=== PATIENT | female | born 1955 | race Caucasian/White ===

== ENCOUNTER 2019-03-29 23:02 | Inpatient (IN) | payer OTHER ==
[2019-03-30 02:47] LABS: ADD MAN DIFF? NO
[2019-03-30 02:48] LABS: BASOPHIL # 0.1 10^3/ul (0.0-0.1); BASOPHILS % 0.5 % (0.0-2.0); EOSINOPHILS # 0.6 10^3/ul (0.0-0.5); EOSINOPHILS % 5.2 % (0.0-7.0); HEMATOCRIT 49.4 % (37.0-47.0); HEMOGLOBIN 15.5 g/dl (12.0-16.0); LYMPHOCYTES # 2.6 10^3/ul (0.8-2.9); LYMPHOCYTES % 24.2 % (15.0-51.0); MEAN CORPUSCULAR HEMOGLOBIN 28.1 pg (29.0-33.0); MEAN CORPUSCULAR HGB CONC 31.4 g/dl (32.0-37.0); MEAN CORPUSCULAR VOLUME 89.5 fl (82.0-101.0); MEAN PLATELET VOLUME 10.9 fl (7.4-10.4); MONOCYTE # 0.8 10^3/ul (0.3-0.9); MONOCYTES % 7.2 % (0.0-11.0); NEUTROPHIL # 6.8 10^3/ul (1.6-7.5); NEUTROPHILS % 62.5 % (39.0-77.0); PLATELET COUNT 214 10^3/UL (140-415); RED BLOOD COUNT 5.52 10^6/ul (4.20-5.40); RED CELL DISTRIBUTION WIDTH 13.6 % (11.5-14.5)
[2019-03-30 02:48] LABS: WHITE BLOOD COUNT 10.9 10^3/ul (4.8-10.8)
[2019-03-30] MEDS: SOD CHLORIDE 0.9% 1,000 ML IV (02:51)
[2019-03-30 02:52] LABS: ADD UMIC NO; UR ASCORBIC ACID NEGATIVE (NEGATIVE); UR BILIRUBIN (Dip) NEGATIVE (NEGATIVE); UR BLOOD (Dip) NEGATIVE (NEGATIVE); UR CLARITY CLEAR (CLEAR); UR COLOR STRAW (YELLOW); UR GLUCOSE (Dip) 3+ mg/dL (NEGATIVE); UR KETONES (Dip) NEGATIVE (NEGATIVE); UR LEUKOCYTE ESTERASE (Dip) NEGATIVE Leu/ul (NEGATIVE); UR NITRITE (Dip) NEGATIVE (NEGATIVE); UR TOTAL PROTEIN (Dip) NEGATIVE (NEGATIVE); UR UROBILINOGEN (Dip) NEGATIVE (NEGATIVE)
[2019-03-30 03:05] LABS: ALANINE AMINOTRANSFERASE 24 IU/L (13-69); ALBUMIN 4.6 g/dl (3.3-4.9); ALBUMIN/GLOBULIN RATIO 1.21; ALKALINE PHOSPHATASE 113 IU/L (42-121); ANION GAP 11 (5-13); ASPARTATE AMINO TRANSFERASE 21 IU/L (15-46); BILIRUBIN,INDIRECT 0.4 mg/dl (0-1.1); BILIRUBIN,TOTAL 0.4 mg/dl (0.2-1.3); BLOOD UREA NITROGEN 18 mg/dl (7-20); CALCIUM 9.3 mg/dl (8.4-10.2); CARBON DIOXIDE 31 mmol/L (21-31); CHLORIDE 101 mmol/L (97-110); Estimated GFR > 60 mL/min (>60); GLUCOSE 141 mg/dl (70-220); LIPASE 356 U/L (23-300); POTASSIUM 3.4 mmol/L (3.5-5.1); SODIUM 143 mmol/L (135-144); TOTAL PROTEIN 8.4 g/dl (6.1-8.1)
[2019-03-30 03:06] LABS: CREATININE 0.67 mg/dl (0.44-1.00)
[2019-03-30] MEDS ORDERED: ONDANSETRON 4 MG INJ IV (03:30)
[2019-03-30] MEDS ORDERED: DOCUSATE SODIUM 100 MG CAP PO (03:30)
[2019-03-30] MEDS ORDERED: BISACODYL (EC) 5 MG TAB PO (03:30)
[2019-03-30] MEDS ORDERED: NACL 0.9% 3 ML SYG IV (03:30)
[2019-03-30] MEDS ORDERED: morphine 2 MG INJ IV (03:30)
[2019-03-30] MEDS ORDERED: HYDROCODONE/APAP (5/325) TAB PO (03:30)
[2019-03-30] MEDS: morphine 4 MG/ML VIAL IV (03:38)
[2019-03-30] MEDS: ONDANSETRON 4 MG INJ IV (03:38)
[2019-03-30] MEDS: PIPER-TAZO 3.375 GM IV (PMX) 100 ML IVPB (03:39)
[2019-03-30] MEDS: POTASSIUM CHLORIDE (SR) 20 MEQ TAB PO (03:54)
[2019-03-30 06:00] LABS: HEMOGLOBIN A1C 7.3 % (0-5.9)
[2019-03-30 06:05] LABS: MAGNESIUM 2.1 mg/dl (1.7-2.5)
[2019-03-30 06:05] LABS: CHOL/HDL RATIO 2.7 RATIO; CHOLESTEROL 112 mg/dl (100-200); HDL CHOLESTEROL 41 mg/dl (35-98); LDL CHOLESTEROL,CALCULATED 53 mg/dl; TRIGLYCERIDES 88 mg/dl (0-149)
[2019-03-30] MEDS ORDERED: VANCOMYCIN IV PER PHARMACY XX (06:30)
[2019-03-30 06:38] LABS: C-REACTIVE PROTEIN 1.7 mg/dl (0.0-0.9)
[2019-03-30 07:43] LABS: ERYTHROCYTE SEDIMENTATION RATE 12 mm/Hr (0-30)
[2019-03-30] MEDS: INSULIN ASPART [NOVOLOG] 3 ML PEN SC ×2 (08:00→12:00)
[2019-03-30] MEDS: VANCOMYCIN HCL 2 GM in SOD CHLORIDE 0.9% 500 ML IVPB (10:13)
[2019-03-30] MEDS: ENOXAPARIN 40 MG/0.4 ML SYG SC (10:14)
[2019-03-30] MEDS ORDERED: GLUCAGON 1 MG INJ IM (13:30)
[2019-03-30] MEDS ORDERED: GLUCOSE GEL 15 GRAM TUBE PO ×2 (13:30)
[2019-03-30] MEDS ORDERED: GLUCOSE GEL 15 GRAM TUBE BUCCAL (13:30)
[2019-03-30] MEDS ORDERED: DEXTROSE 50% 50 ML SYRINGE IV ×2 (13:30)
[2019-03-30] MEDS: ACETAMINOPHEN 325 MG TAB PO (15:01)
[2019-03-30] MEDS ORDERED: VANCOMYCIN HCL 1.5 GM in SOD CHLORIDE 0.9% 250 ML IVPB (22:00)
[2019-03-31] MEDS ORDERED: ACCU-CHEK XX (02:00)
== END 2019-03-30 17:40 | disposition home or self-care (01) | DRG 603 ==
LOC: E/R 23:02 → 2NE 03-30 03:21
DX: L03.115 Cellulitis of right lower limb (principal); Z68.42 Body mass index [BMI] 45.0-49.9, adult; I10 Essential (primary) hypertension; E11.51 Type 2 diabetes mellitus with diabetic peripheral angiopathy without gangrene; E03.9 Hypothyroidism, unspecified; E66.01 Morbid (severe) obesity due to excess calories; E78.5 Hyperlipidemia, unspecified
CPT/HCPCS: 36415; 71045; 80053; 80061; 81003; 82962; 83036; 83690; 83735; 84443; 85025; 85651; 86140; 87040-91; 93970; 99285-25